=== PATIENT | female | born 2005 | race American Indian/Alaskan Native ===

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

== ENCOUNTER 2023-06-14 17:50 | Emergency (ER) | payer MEDICAID, OTHER, SELFPAY ==
[2023-06-14] VITALS (12 sets, daily range): BP systolic 113–128; BP diastolic 59–79; PULSE 88–109; RESP 20–28; TEMP 36.5–36.9; O2SAT 96–99; BMI 28.5
--- NOTE | 2023-06-14 18:20 | PC.NURSE ---
This RN gave immediate report to Provider Dr. Herrera and Primary RN upon patient being placed in room.
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
[2023-06-14 18:40] LABS: Urine Volume 10mL (spun)
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
[2023-06-14 18:53] LABS: Bacteria Urine Many (>30); Culture Indicated Urine Cult Not Indicated; RBC Urine 0-1/HPF (0-5/HPF); Squamous Epithelial Cell Urine 5-10 /HPF (0-5/HPF); WBC Urine 1-5/HPF (0-5/HPF)
[2023-06-14] MEDS: ONDANSETRON 4 MG ODT SL (19:02)
[2023-06-14] MEDS: ACETAMINOPHEN 325 MG TABLET 975 MG PO (19:02)
[2023-06-14 19:09] LABS: Add Manual Diff / Slide Review NO; Basophils Absolute Auto 100 /uL (0-100); Basophils Percent Auto 0.5 % (0-2); Eosinophils Absolute Auto 0 /uL (0-450); Hematocrit 40.7 % (36-46); Hemoglobin 13.5 g/dL (12.0-16.0); Lymphocytes Absolute Auto 1500 /uL (1100-4500); Lymphocytes Percent Auto 11.9 % (25-40); Mean Corpuscular HGB Conc 33.2 % (30-36); Mean Corpuscular Hemoglobin 28.7 PG (26-34); Mean Corpuscular Volume 86.4 fL (80-100); Monocytes Absolute Auto 800 /uL (0-900); Monocytes Percent Auto 6.1 % (3-14); Neutrophils Absolute Auto 10500 /uL (1500-7000); Neutrophils Percent Auto 81.5 % (50-75); Platelet Count 288 X10^3/uL (150-400); Red Blood Cell Count 4.71 X10^6/uL (4.0-5.2); Red Cell Distribution Width 14.9 % (11.6-14.8); White Blood Cell Count 12.9 X10^3/uL (4.5-11.0)
[2023-06-14 19:24] LABS: Alanine Aminotransferase 21 IU/L (<35); Albumin 4.6 g/dL (3.5-5.0); Albumin Globulin Ratio 1.2 (1.0-2.8); Alkaline Phosphatase 57 U/L (38-126); Aspartate Aminotransferase 27 IU/L (14-36); BUN Creatinine Ratio 12.5 (6-22); Bilirubin Total 0.6 mg/dL (0.2-1.3); Blood Urea Nitrogen 6 mg/dL (7-17); Calcium 9.7 mg/dL (8.4-10.2); Carbon Dioxide 21 mmol/L (22-32); Chloride 103 mmol/L (98-107); Estimated Glomerular Filt Rate > 60 mL/min (>60); Globulin 3.8 g/dL (1.7-4.1); Glucose 97 mg/dL (70-100); HEMOLYSIS < 15 (0-50); Lipase 51 U/L (23-300); Potassium 3.6 mmol/L (3.4-5.1); Sodium 136 mmol/L (137-145); Total Protein 8.4 g/dL (6.3-8.2)
[2023-06-14 20:05] LABS: HCG Quantitative /Beta subunit 67679 mIU/mL
== END 2023-06-14 21:30 | disposition home or self-care (01) ==
PROVIDERS: Emergency Provider Emergency Medicine
DX: R07.89 Other chest pain (principal); V89.2XXA Person injured in unspecified motor-vehicle accident, traffic, initial encounter; Z3A.01 Less than 8 weeks gestation of pregnancy
CPT/HCPCS: 71045; 76705; 76801; 76817; 80053; 81003; 81015; 81025; 83690; 84702; 85025; 86900; 86901; 87086; 99284